=== PATIENT | female | born 1965 | race American Indian/Alaskan Native ===

== ENCOUNTER 2017-03-23 19:09 | Emergency (ER) | payer SELFPAY ==
[2017-03-23 20:08] LABS: Hematocrit 37.3 % (30.3-42.9); Hemoglobin 11.9 gm/dl (10.1-14.3); Mean Corpuscular HGB Conc 32 % (30-34); Mean Corpuscular Hemoglobin 27 pg (28-32); Mean Corpuscular Volume 84 fl (79-97); Platelet Count 355 K/mm3 (140-440); Red Blood Count 4.46 M/mm3 (3.65-5.03); Red Cell Distribution Width 16.1 % (13.2-15.2); White Blood Count 9.9 K/mm3 (4.5-11.0)
[2017-03-23 20:19] LABS: INR 0.96 (0.87-1.13)
[2017-03-23 20:30] LABS: Anion Gap 18 mmol/L; Blood Urea Nitrogen 14 mg/dL (7-17); Carbon Dioxide 25 mmol/L (22-30); Chloride 99.9 mmol/L (98-107); Glucose 98 mg/dL (65-100); Potassium 3.6 mmol/L (3.6-5.0); Sodium 139 mmol/L (137-145)
--- NOTE | 2017-03-23 20:38 | Cat Scan Report ---
FINAL REPORT EXAM: CT HEAD/BRAIN WO CON HISTORY: neuro deficits \T\lt; 6hrs or sx present upon awakening TECHNIQUE: Standard unenhanced CT of the head at 5.0 millimeter axial increments PRIORS: CT head 07/20/2015 FINDINGS: The ventricular system is normal in size and configuration. There is no evidence for parenchymal volume loss. There is no evidence for mass lesion, mass effect, midline shift, acute intracranial hemorrhage, or acute ischemia/ infarction. Visualized paranasal sinuses are clear. IMPRESSION: Negative CT of the head. No acute intracranial process noted. No change.
[2017-03-23 20:41] LABS: Blastocytes % (Manual) 0 %
[2017-03-23 20:42] LABS: Platelet Estimate Consistent w Auto
[2017-03-23 20:43] LABS: Anisocytosis 1+; Diff Status Complete; Large Platelets Few
[2017-03-23] MEDS ORDERED: TYLENOL ONE (23:18)
[2017-03-23] MEDS ORDERED: TYLENOL PO ONE (23:46)
[2017-03-24] MEDS ORDERED: NORVASC PO ONE (00:27)
[2017-03-24] MEDS ORDERED: COZAAR PO ONE (00:28)
[2017-03-24] MEDS ORDERED: COZAAR ONE (00:42)
--- NOTE | 2017-03-24 01:05 | Emergency Department Report ---
ED General Adult HPI - General Chief complaint: High BP Stated complaint: ELEVATED BLOOD PRESSURE Time Seen by Provider: 03/24/17 00:27 Source: patient Mode of arrival: Ambulatory Limitations: No Limitations - History of Present Illness Initial comments: Patient is a 51 year-old female with a past medical history of hypertension who presents with headache that has been going on since today she states that the headache is an 8 out of 10 in severity in the temporal area of her head has progressively gotten worse. Nothing makes it better or worse it is an achy type of pain. It is intermittent. She did occur blood pressure and was 174/ 84. Patient states that she is vomiting any blood pressure medications. However she took her 's. She denies any nausea or vomiting but she still feels lightheaded Severity scale (0 -10): 8 - Related Data Previous Rx's Medication Instructions Recorded Last Taken Type Naproxen [Naprosyn TAB] 500 mg PO BID PRN #60 tablet 07/19/15 Unknown Rx Nitrofurantoin [place]/M-Cryst 100 mg PO Q12HR #14 capsule 07/19/15 Unknown Rx [Macrobid CAP] Ondansetron [Zofran Odt] 4 mg PO Q8H #10 tab.rapdis 07/19/15 Unknown Rx traMADol [Ultram 50 MG tab] 50 mg PO Q6HR PRN #15 tablet 07/19/15 Unknown Rx Losartan [Cozaar] 25 mg PO QDAY #30 tablet 07/20/15 Unknown Rx Lisinopril [Zestril TAB] 10 mg PO QDAY #20 tablet 03/24/17 Unknown Rx Allergies Allergy/AdvReac Type Severity Reaction Status Date / Time No Known Allergies Allergy Verified 07/19/15 22:19 ED Review of Systems ROS: Stated complaint: ELEVATED BLOOD PRESSURE Other details as noted in HPI Constitutional: denies: chills, fever Eyes: denies: eye pain, eye discharge, vision change ENT: denies: ear pain, throat pain Respiratory: denies: cough, shortness of breath, wheezing Cardiovascular: denies: chest pain, palpitations Endocrine: no symptoms reported Gastrointestinal: denies: abdominal pain, nausea, diarrhea Genitourinary: denies: urgency, dysuria, discharge Musculoskeletal: denies: back pain, joint swelling, arthralgia Skin: denies: rash, lesions Neurological: headache Psychiatric: denies: anxiety, depression Hematological/Lymphatic: denies: easy bleeding, easy bruising ED Past Medical Hx - Past Medical History Previous Medical History?: Yes Hx Hypertension: Yes (Not taking Rx) Additional medical history: Sinus headache - Surgical History Past Surgical History?: Yes Additional Surgical History: - Social History Smoking Status: Never Smoker Substance Use Type: Alcohol - Medications Home Medications: Home Medications Medication Instructions Recorded Confirmed Last Taken Type Naproxen [Naprosyn TAB] 500 mg PO BID PRN #60 tablet 07/19/15 Unknown Rx Nitrofurantoin [place]/M-Cryst 100 mg PO Q12HR #14 capsule 07/19/15 Unknown Rx [Macrobid CAP] Ondansetron [Zofran Odt] 4 mg PO Q8H #10 tab.rapdis 07/19/15 Unknown Rx traMADol [Ultram 50 MG tab] 50 mg PO Q6HR PRN #15 tablet 07/19/15 Unknown Rx Losartan [Cozaar] 25 mg PO QDAY #30 tablet 07/20/15 Unknown Rx Lisinopril [Zestril TAB] 10 mg PO QDAY #20 tablet 03/24/17 Unknown Rx ED Physical Exam - General Limitations: No Limitations General appearance: alert, in no apparent distress - Head Head exam: Present: atraumatic, normocephalic - Eye Eye exam: Present: normal appearance - ENT ENT exam: Present: mucous membranes moist - Neck Neck exam: Present: normal inspection - Respiratory Respiratory exam: Present: normal lung sounds bilaterally. Absent: respiratory distress - Cardiovascular Cardiovascular Exam: Present: regular rate, normal rhythm. Absent: systolic murmur, diastolic murmur, rubs, gallop - GI/Abdominal GI/Abdominal exam: Present: soft, normal bowel sounds - Extremities Exam Extremities exam: Present: normal inspection - Back Exam Back exam: Present: normal inspection - Neurological Exam Neurological exam: Present: alert, oriented X3 - Psychiatric Psychiatric exam: Present: normal affect, normal mood - Skin Skin exam: Present: warm, dry, intact, normal color. Absent: rash ED Course Vital Signs 03/23/17 03/23/17 03/23/17 19:09 23:01 23:20 Temperature 98.5 F 97.6 F Pulse Rate 70 83 Respiratory 18 16 18 Rate Blood Pressure Blood Pressure 162/106 175/103 [Right] O2 Sat by Pulse 100 99 Oximetry 03/24/17 03/24/17 03/24/17 00:30 00:35 01:17 Temperature Pulse Rate 81 81 82 Respiratory Rate Blood Pressure 160/110 160/110 Blood Pressure 160/114 [Right] O2 Sat by Pulse Oximetry - Reevaluation(s) Reevaluation #1: 03/24/17 01:00 Patient is feeling better discussed findings with patient the results are negative. Patient is requesting something for her blood pressure oral antihypertensives to patient Reevaluation #2: 03/24/17 02:03 We'll send patient home she agrees to plan additional verbal discharge instructions were given at discharge ED Medical Decision Making - Lab Data Result diagrams: 03/23/17 19:57 03/23/17 19:57 Laboratory Results - last 24 hr 03/23/17 03/23/17 03/23/17 19:57 19:57 19:57 WBC 9.9 RBC 4.46 Hgb 11.9 Hct 37.3 MCV 84 MCH 27 L MCHC 32 RDW 16.1 H Plt Count 355 Lymph # Analytics Intern Add Manual Diff Complete Total Counted 100 Seg Neuts % (Manual) 43.0 Band Neutrophils % 0 Lymphocytes % (Manual) 46.0 H Reactive Lymphs % (Man) 0 Monocytes % (Manual) 8.0 H Eosinophils % (Manual) 2.0 Basophils % (Manual) 1.0 Metamyelocytes % 0 Myelocytes % 0 Promyelocytes % 0 Blast Cells % 0 Nucleated RBC % Not Reportable Seg Neutrophils # Man 4.3 Band Neutrophils # 0.0 Lymphocytes # (Manual) 4.6 Abs React Lymphs (Man) 0.0 Monocytes # (Manual) 0.8 Eosinophils # (Manual) 0.2 Basophils # (Manual) 0.1 Metamyelocytes # 0.0 Myelocytes # 0.0 Promyelocytes # 0.0 Blast Cells # 0.0 WBC Morphology Not Reportable Hypersegmented Neuts Not Reportable Hyposegmented Neuts Not Reportable Hypogranular Neuts Not Reportable Smudge Cells Not Reportable Toxic Granulation Not Reportable Toxic Vacuolation Not Reportable Dohle Bodies Not Reportable Pelger-Huet Anomaly Not Reportable Kari Rods Not Reportable Platelet Estimate Consistent w auto Clumped Platelets Not Reportable Plt Clumps, EDTA Not Reportable Large Platelets Few Giant Platelets Not Reportable Platelet Satelliting Not Reportable Plt Morphology Comment Not Reportable RBC Morphology Not Reportable Dimorphic RBCs Not Reportable Polychromasia Not Reportable Hypochromasia Not Reportable Poikilocytosis Not Reportable Anisocytosis 1+ Microcytosis Not Reportable Macrocytosis Not Reportable Spherocytes Not Reportable Pappenheimer Bodies Not Reportable Sickle Cells Not Reportable Target Cells Not Reportable Tear Drop Cells Not Reportable Ovalocytes Not Reportable Helmet Cells Not Reportable Lopez-St. Thomas Bodies Not Reportable Camilla Rings Not Reportable White Salmon Cells Not Reportable Bite Cells Not Reportable Crenated Cell Not Reportable Elliptocytes Not Reportable Acanthocytes (Spur) Not Reportable Rouleaux Not Reportable Hemoglobin C Crystals Not Reportable Schistocytes Not Reportable Malaria parasites Not Reportable Levi Bodies Not Reportable Hem Pathologist Commnt No PT 13.3 INR 0.96 APTT 28.0 Sodium 139 Potassium 3.6 Chloride 99.9 Carbon Dioxide 25 Anion Gap 18 BUN 14 Creatinine 0.8 Estimated GFR > 60 BUN/Creatinine Ratio 17.50 Glucose 98 Calcium 10.0 Troponin T < 0.010 - Medical Decision Making Chief medical diagnosis: Tension headache Differential cold diagnosis hypertensive urgency, migraine headache, cluster headache We'll get CBC CMP CT had pain control and anti-hypertensives Critical care attestation.: If time is entered above; I have spent that time in minutes in the direct care of this critically ill patient, excluding procedure time. ED Disposition Clinical Impression: Tension headache HTN (hypertension) Qualifiers: Hypertension type: unspecified Qualified Code(s): I10 - Essential (primary) hypertension Disposition: TO HOME OR SELFCARE Is pt being admited?: No Does the pt Need Aspirin: No Condition: Stable Instructions: Hypertension (ED) Prescriptions: Lisinopril [Zestril TAB] 10 mg PO QDAY #20 tablet Referrals: PATSY COMBS MD [Primary Care Provider] - 3-5 Days Time of Disposition: :
[2017-03-24 01:18] VITALS: BP 160/114
== END 2017-03-24 01:18 | disposition home or self-care (01) ==
LOC: ED 19:09
DX: G44.209 Tension-type headache, unspecified, not intractable (principal); I10 Essential (primary) hypertension
CPT/HCPCS: 36415; 70450; 80048; 84484; 85007; 85025; 85610; 85730; 93005; 93010

== ENCOUNTER 2017-03-28 21:41 | Emergency (ER) | payer SELFPAY ==
[2017-03-28] MEDS ORDERED: TYLENOL PO ONE (21:57)
[2017-03-28 22:29] LABS: Basophils % (Auto) 1.1 % (0.0-1.8); Eosinophils % (Auto) 0.8 % (0.0-4.3); Hematocrit 36.9 % (30.3-42.9); Mean Corpuscular HGB Conc 33 % (30-34); Mean Corpuscular Hemoglobin 27 pg (28-32); Mean Corpuscular Volume 82 fl (79-97); Platelet Count 352 K/mm3 (140-440); Red Blood Count 4.49 M/mm3 (3.65-5.03); Red Cell Distribution Width 15.6 % (13.2-15.2); White Blood Count 6.8 K/mm3 (4.5-11.0)
[2017-03-28 22:43] LABS: Anion Gap 19 mmol/L; BUN/Creatinine Ratio 15.71; Blood Urea Nitrogen 11 mg/dL (7-17); Calcium 10.7 mg/dL (8.4-10.2); Carbon Dioxide 24 mmol/L (22-30); Chloride 98.8 mmol/L (98-107); Glucose 104 mg/dL (65-100); Potassium 4.2 mmol/L (3.6-5.0); Sodium 138 mmol/L (137-145)
--- NOTE | 2017-03-28 22:43 | Cat Scan Report ---
FINAL REPORT EXAM: CT HEAD/BRAIN WO CON HISTORY: headache TECHNIQUE: Noncontrast CT axial images of the brain. PRIORS: 23 March 2017. FINDINGS: No parenchymal mass, mass effect, hemorrhage, midline shift or hydrocephalus. No evidence of acute cortical infarct. No abnormal, extra-axial fluid or air collection. Osseous calvarium grossly intact. IMPRESSION: 1. No acute intracranial findings.
--- NOTE | 2017-03-29 02:08 | Emergency Department Report ---
ED General Adult HPI - General Chief complaint: Headache Stated complaint: HBP Time Seen by Provider: 03/29/17 01:09 Source: patient, RN notes reviewed, old records reviewed Mode of arrival: Ambulatory Limitations: No Limitations - History of Present Illness Initial comments: This is a 51-year-old female. She is previously unknown to me. Her primary care doctor is Dr. Kay Patient was recently seen in this emergency department for elevated blood pressure and headache. She was presumptively diagnosed with hypertension, and initiated on antihypertensive medication. Patient reports that she does not think that she has a formal diagnosis of hypertension. The patient presents to the ER complaining of headache, and hypertension. The headache started at 5:00 in the afternoon. It is not sudden or thunderclap in nature. It did not reach maximal intensity within an hour. It is not the worse headache of her life. She reports that her headache was associated with hypertension. She reports that her blood pressure is 161/113. She reports her headache is mostly improved. She denies neck pain, chest pain, abdominal pain, shortness of breath, loss of vision, ataxia. The patient is quite preoccupied with hypertension. She reports that she checks her blood pressure often and regularly. -: Gradual Location: head Radiation: non-radiation Severity scale (0 -10): 8 Consistency: now resolved Improves with: none Worsens with: none Associated Symptoms: headaches. denies: confusion, chest pain, diaphoresis, fever/chills, loss of appetite, shortness of breath, syncope, weakness - Related Data Previous Rx's Medication Instructions Recorded Last Taken Type Naproxen [Naprosyn TAB] 500 mg PO BID PRN #60 tablet 07/19/15 Unknown Rx Nitrofurantoin [place]/M-Cryst 100 mg PO Q12HR #14 capsule 07/19/15 Unknown Rx [Macrobid CAP] Ondansetron [Zofran Odt] 4 mg PO Q8H #10 tab.rapdis 07/19/15 Unknown Rx traMADol [Ultram 50 MG tab] 50 mg PO Q6HR PRN #15 tablet 07/19/15 Unknown Rx Losartan [Cozaar] 25 mg PO QDAY #30 tablet 07/20/15 Unknown Rx Lisinopril [Zestril TAB] 10 mg PO QDAY #20 tablet 03/24/17 Unknown Rx Allergies Allergy/AdvReac Type Severity Reaction Status Date / Time No Known Allergies Allergy Verified 07/19/15 22:19 ED Review of Systems ROS: Stated complaint: HBP Other details as noted in HPI Constitutional: denies: fever, malaise Eyes: denies: vision change ENT: denies: epistaxis Respiratory: denies: cough Cardiovascular: denies: chest pain Gastrointestinal: denies: abdominal pain Genitourinary: denies: dysuria Musculoskeletal: denies: back pain Skin: denies: lesions Neurological: headache Psychiatric: anxiety ED Past Medical Hx - Past Medical History Hx Hypertension: Yes (Not taking Rx) Additional medical history: Sinus headache - Surgical History Additional Surgical History: - Social History Smoking Status: Never Smoker Substance Use Type: None, Alcohol - Medications Home Medications: Home Medications Medication Instructions Recorded Confirmed Last Taken Type Naproxen [Naprosyn TAB] 500 mg PO BID PRN #60 tablet 07/19/15 Unknown Rx Nitrofurantoin [place]/M-Cryst 100 mg PO Q12HR #14 capsule 07/19/15 Unknown Rx [Macrobid CAP] Ondansetron [Zofran Odt] 4 mg PO Q8H #10 tab.rapdis 07/19/15 Unknown Rx traMADol [Ultram 50 MG tab] 50 mg PO Q6HR PRN #15 tablet 07/19/15 Unknown Rx Losartan [Cozaar] 25 mg PO QDAY #30 tablet 07/20/15 Unknown Rx Lisinopril [Zestril TAB] 10 mg PO QDAY #20 tablet 03/24/17 Unknown Rx ED Physical Exam - General Limitations: No Limitations General appearance: alert, in no apparent distress - Head Head exam: Present: atraumatic, normocephalic - Eye Eye exam: Present: normal appearance, PERRL, EOMI, other (visual acuity intact to finger counting, color perception, reading at a close distance). Absent: nystagmus - ENT ENT exam: Present: normal exam, normal orophraynx, mucous membranes moist, normal external ear exam - Neck Neck exam: Present: normal inspection, full ROM. Absent: tenderness, meningismus - Respiratory Respiratory exam: Present: normal lung sounds bilaterally. Absent: respiratory distress, wheezes, rales, rhonchi, stridor, chest wall tenderness, accessory muscle use, decreased breath sounds, prolonged expiratory - Cardiovascular Cardiovascular Exam: Present: regular rate, normal rhythm, normal heart sounds. Absent: bradycardia, tachycardia, irregular rhythm, systolic murmur, diastolic murmur, rubs, gallop - GI/Abdominal GI/Abdominal exam: Present: soft, normal bowel sounds. Absent: distended, tenderness, guarding, rebound, rigid, pulsatile mass - Extremities Exam Extremities exam: Present: normal inspection, full ROM, normal capillary refill. Absent: tenderness, pedal edema, joint swelling, calf tenderness - Back Exam Back exam: Present: normal inspection, full ROM. Absent: tenderness, CVA tenderness (R), CVA tenderness (L), muscle spasm, paraspinal tenderness, vertebral tenderness - Neurological Exam Neurological exam: Present: alert (no visual field cuts on direct confrontation) , oriented X3, normal gait (normal gait, normal tandem gait, normal [id number]-pyha , negative pronator drift, negative Romberg examination), other (Extraocular movements intact. Tongue midline. No facial droop. Facial sensation intact to light touch in the V1, V2, V3 distribution bilaterally. 5 and 5 strength in 4 extremities.. Sensation is intact to light touch in 4 extremities.). Absent : motor sensory deficit - Psychiatric Psychiatric exam: Present: anxious - Skin Skin exam: Present: warm, dry, intact, normal color. Absent: rash ED Course Vital Signs 03/28/17 03/29/17 21:47 01:16 Temperature 97.8 F Pulse Rate 95 H Respiratory 18 18 Rate Blood Pressure 146/109 O2 Sat by Pulse 97 98 Oximetry ED Medical Decision Making - Lab Data Result diagrams: 03/28/17 22:09 03/28/17 22:09 Vital Signs 03/28/17 03/29/17 21:47 01:16 Temperature 97.8 F Pulse Rate 95 H Respiratory 18 18 Rate Blood Pressure 146/109 O2 Sat by Pulse 97 98 Oximetry Lab Results 03/28/17 03/28/17 Range/Units 22:09 22:09 WBC 6.8 (4.5-11.0) K/mm3 RBC 4.49 (3.65-5.03) M/mm3 Hgb 12.0 (10.1-14.3) gm/dl Hct 36.9 (30.3-42.9) % MCV 82 (79-97) fl MCH 27 L (28-32) pg MCHC 33 (30-34) % RDW 15.6 H (13.2-15.2) % Plt Count 352 (140-440) K/mm3 Lymph % (Auto) 34.1 (13.4-35.0) % [place] % (Auto) 10.5 H (0.0-7.3) % Eos % (Auto) 0.8 (0.0-4.3) % Baso % (Auto) 1.1 (0.0-1.8) % Lymph # 2.3 (1.2-5.4) K/mm3 [place] # 0.7 (0.0-0.8) K/mm3 Eos # 0.1 (0.0-0.4) K/mm3 Baso # 0.1 (0.0-0.1) K/mm3 Seg Neutrophils % 53.5 (40.0-70.0) % Seg Neutrophils # 3.6 (1.8-7.7) K/mm3 Sodium 138 (137-145) mmol/L Potassium 4.2 (3.6-5.0) mmol/L Chloride 98.8 (98-107) mmol/L Carbon Dioxide 24 (22-30) mmol/L Anion Gap 19 mmol/L BUN 11 (7-17) mg/dL Creatinine 0.7 (0.7-1.2) mg/dL Estimated GFR > 60 ml/min BUN/Creatinine Ratio 15.71 % Glucose 104 H (65-100) mg/dL Calcium 10.7 H (8.4-10.2) mg/dL Troponin T < 0.010 (0.00-0.029) ng/mL - EKG Data -: EKG Interpreted by Me - EKG Data 03/29/17 02:05 normal sinus, 75 bpm, normal axis, normal intervals, T-wave inversion V2, abnormal EKG, not morphologically consistent with STEMI, appears unchanged compared to prior EKG from 03/23/2017 - Radiology Data Radiology results: report reviewed, image reviewed Noncontrast CT scan of the head/brain is negative for acute disease - Medical Decision Making Differential diagnosis: Hypertension, migraine headache, tension headache, cluster headache, anxiety Assessment and plan: 51-year-old female with a primary complaint of headache, who is quite concerned about her hypertension. She is afebrile with reassuring vital signs with the exception of hypertension. I explained to the patient that she would require multiple consecutive visits with multiple documented episodes of hypertension/elevated blood pressure in order to receive a formal diagnosis of hypertension. I also explained to the patient that she might consider diet and lifestyle modification before initiating antihypertensive medication, and encouraged weight loss, physical activity as tolerated, and working out. I also instructed the patient that if she wanted to check her blood pressure, that she should check in the morning, and then at night, to make it a matter of habit. There appears to be a significant anxiety component to the patient's presentation, and she is quite preoccupied with the numerical value of her hypertension. Has a GCS of 15, NIH score of 0, ABCD 2 score of 0. Troponin sent prior to my evaluation, had a negative troponin one week ago, given her symptoms, she is low risk by CALVIN score, low risk by heart score, I don't believe the patient requires admission to the hospital for ACS risk stratification. On a similar note, neurologic examination is normal and unremarkable, no lateralizing deficits, and she did not endorse any strokelike symptoms to me on her history and physical. She can follow-up with her outpatient primary care doctor. Critical care attestation.: If time is entered above; I have spent that time in minutes in the direct care of this critically ill patient, excluding procedure time. ED Disposition Clinical Impression: Headache, Elevated blood pressure reading Disposition: DC-01 TO HOME OR SELFCARE Is pt being admited?: No Does the pt Need Aspirin: No Condition: Good Instructions: Hypertension (ED) Additional Instructions: As we discussed, a diagnosis of hypertension typically requires 3 consecutive office visits. It may be that the patient does not currently have a formal diagnosis of hypertension/elevated blood pressure. If the patient is going to check her blood pressure, I recommend checking it in the morning, and at night, to make it a matter of habits. Record these values and a log book. I also recommend diet and lifestyle modification, including physical activity as tolerated, exercise routine, brisk walking, and appropriate diet. Follow-up with her primary care doctor within the next month. Headache is most likely migraine headache or tension headache. Patient can take Tylenol every 4 hours, or ibuprofen every 6 hours as needed for headache. Please note that blood pressure was slightly elevated in the emergency department, and she'll be followed up by primary care doctor within the recommended timeframe. Long-term complications of hypertension/elevated blood pressure including stroke , heart attack, disability, paralysis, loss of quality of life. Return to the ER right away with new pain, worsened pain, migration of pain, fevers, chills, confusion, intractable nausea or vomiting, inability to tolerate liquid feeds. For the patient's convenience, numerous neurology special have been listed. Patient can follow up with a neurology specialist within the next 4-6 weeks. Referrals: PRIMARY CARE, [Primary Care Provider] - 3-5 Days PATSY KAY MD [Staff Physician] - 3-5 Days AMANDA MADERA MD [Staff Physician] - 3-5 Days MINDY LIGHT MD [Staff Physician] - 3-5 Days LEO BRUNER MD [Staff Physician] - 3-5 Days
[2017-03-29 02:09] VITALS: BP 175/104
== END 2017-03-29 02:10 | disposition home or self-care (01) ==
LOC: ED 21:41
DX: R51 Headache (principal); I10 Essential (primary) hypertension
CPT/HCPCS: 36415; 70450; 80048; 84484; 85025; 93005; 93010